=== PATIENT | male | born 1985 | race African-American/Black ===

== ENCOUNTER 2025-08-09 19:44 | Emergency (ER) | payer SELFPAY ==
[~2025-08-09] VITALS: Ht 190.5 cm; Wt 91.0 kg
[2025-08-09 20:01] VITALS: O2SAT 99
[2025-08-09] MEDS: KETOROLAC 30MG/ML VIAL IM ONE (20:46)
[2025-08-09] MEDS: LIDOCAINE 5% PATCH TOP SCH (20:47)
[2025-08-09] MEDS: CYCLOBENZAPRINE 10MG TABLET PO ONE (20:47)
[2025-08-09] MEDS: ACETAMINOPHEN 500MG TABLET PO ONE (22:37)
[2025-08-09] MEDS ORDERED: CYCL5TAB3 MT (23:52)
[2025-08-09] MEDS ORDERED: IBUP-1455 MT (23:52)
[2025-08-09] MEDS ORDERED: LIDO700A30 TP (23:52)
[2025-08-10 00:30] VITALS: BP 118/68; PULSE 88; RESP 16; TEMP 37.1; O2SAT 99
== END 2025-08-10 01:44 | disposition home or self-care (01) ==
LOC: ER 19:44
DX: M79.642 Pain in left hand (principal)
CPT/HCPCS: 73130; 73562; 72131; 96372; 99285; J1885; Z7610 ×4